=== PATIENT | female | born 1945 | race Hispanic/Latino ===

== ENCOUNTER 2017-05-14 16:26 | Emergency (ER) | payer BC ==
--- NOTE | 2017-05-14 17:25 | Cat Scan Report ---
FINAL REPORT PROCEDURE: CT HEAD/BRAIN WO CON TECHNIQUE: Computerized tomography of the head was performed without contrast material. HISTORY: fall COMPARISON: No prior studies are available for comparison. FINDINGS: Skull and scalp: Normal. Paranasal sinuses: Normal. Ventricles and subarachnoid spaces: Normal. Cerebrum: No evidence of hemorrhage, acute infarction or mass . Cerebellum and brainstem: No evidence of hemorrhage, acute infarction or mass. Vasculature: Normal. Comments: Mild diffuse atrophy. Mild periventricular microischemic change and central lacunar infarct disease.. IMPRESSION: No acute intracranial pathology seen at this time
--- NOTE | 2017-05-14 17:27 | Cat Scan Report ---
FINAL REPORT PROCEDURE: CT CERVICAL SPINE WO CON TECHNIQUE: Computerized tomography of the cervical spine was performed from the skull base to T1 without contrast material. HISTORY: fall COMPARISON: No prior studies are available for comparison. FINDINGS: Moderate sonja odontoid ligamentous calcifications. Skull base appears intact. Multilevel facet arthropathy neuroforaminal narrowing. No definite evidence of acute fracture seen at this time. Prominent posterior osteophyte at the C5-6 level. Slight retrolisthesis at C4.. No prevertebral soft tissue swelling IMPRESSION: No evidence acute fracture seen at this time
--- NOTE | 2017-05-14 17:52 | Cat Scan Report ---
FINAL REPORT PROCEDURE: CT FACIAL BONES WO CON TECHNIQUE: Computerized tomography of the facial bones and soft tissues with axial and coronal sections performed from the cranial aspect of the frontal sinuses to the caudal portion of the mandible without contrast material. HISTORY: fall with orbit injury COMPARISON: No prior studies are available for comparison. FINDINGS: Examination limited by motion artifact Bones: No significant abnormality. Paranasal sinuses: Clear. Soft tissues: No significant abnormality. Other: Slight calcification anterior alveolar ridge could reflect tiny fracture but that is inconclusive secondary to motion. IMPRESSION: Indeterminate for slight chip fracture anterior alveolar ridge versus motion. No definite evidence of acute fracture of the orbit
[2017-05-14] MEDS ORDERED: TORADOL IM ONE (22:15)
--- NOTE | 2017-05-14 22:30 | Emergency Department Report ---
ED Headache HPI - General Chief Complaint: Headache Stated Complaint: FALL, RIGHT EYE LACERATION Time Seen by Provider: 05/14/17 21:42 Source: patient, RN notes reviewed Exam Limitations: no limitations - History of Present Illness Initial Comments: 71 yo female who comes in today due to a fall. She states that she was walking behind someone at school and her leg got caught and she fell. She denies any loc, but does admit to pain in the right temporal area and over her right upper eyelid. She also denies any focal neurological deficits. Quality: mild Head Injury Location: temporal (right), other (right upper eyelid ) Recent Head Trauma: other (fall ) Modifying Factors: improves with: rest Associated Symptoms: denies symptoms Allergies/Adverse Reactions: Allergies Penicillins Allergy (Verified 05/14/17 16:36) Swelling sulfamethoxazole [From Bactrim] Allergy (Verified 05/14/17 16:36) Hives trimethoprim [From Bactrim] Allergy (Verified 05/14/17 16:36) Hives diazepam [From Valium] Adverse Reaction (Verified 05/14/17 16:36) Shortness of Breath morphine Adverse Reaction (Verified 05/14/17 16:36) Nausea ED Review of Systems ROS: Stated complaint: FALL, RIGHT EYE LACERATION Other details as noted in HPI Constitutional: denies: chills, fever Eyes: as per HPI, eye pain ENT: denies: ear pain, throat pain Respiratory: denies: cough, shortness of breath, wheezing Cardiovascular: denies: chest pain, palpitations Endocrine: no symptoms reported Gastrointestinal: denies: abdominal pain, nausea, diarrhea Genitourinary: denies: urgency, dysuria, discharge Musculoskeletal: other (left rib pain ) Skin: denies: rash, lesions Neurological: denies: headache, weakness, paresthesias Psychiatric: denies: anxiety, depression Hematological/Lymphatic: denies: easy bleeding, easy bruising ED Past Medical Hx - Past Medical History Previous Medical History?: Yes Hx Hypertension: Yes Additional medical history: Osterporosis, Deg. disc disease, IBS - Surgical History Hx Cholecystectomy: Yes Additional Surgical History: 3 knee surgeries ED Physical Exam - General Limitations: No Limitations General appearance: alert, in no apparent distress - Head Head exam: Present: other (laceration-right upper eyelid ) - Eye Eye exam: Present: other (right upper eyelid laceration ) Pupils: Present: normal accommodation - ENT ENT exam: Present: mucous membranes moist - Neck Neck exam: Present: normal inspection - Respiratory Respiratory exam: Present: normal lung sounds bilaterally. Absent: respiratory distress - Cardiovascular Cardiovascular Exam: Present: tachycardia - Extremities Exam Extremities exam: Present: normal inspection - Back Exam Back exam: Present: normal inspection - Neurological Exam Neurological exam: Present: alert, oriented X3 - Psychiatric Psychiatric exam: Present: normal affect, normal mood - Skin Skin exam: Present: warm, dry, intact, normal color. Absent: rash ED Course Vital Signs 05/14/17 05/14/17 16:36 20:21 Temperature 98.7 F 98.6 F Pulse Rate 109 H 94 H Respiratory 18 18 Rate Blood Pressure 166/97 176/107 O2 Sat by Pulse 95 95 Oximetry - Reevaluation(s) Reevaluation #1: 05/14/17 23:37 Workup unremarkable. Home today. ED Medical Decision Making - Radiology Data Radiology results: report reviewed CT-head, ct facial, ct cervical spine, left chest with rib detail unremarkable. - Medical Decision Making Fall Contusion-right upper eyelid/temporal area Left rib contusion - Differential Diagnosis Fall, right temporal contusion/abrasion, left rib contusion Critical care attestation.: If time is entered above; I have spent that time in minutes in the direct care of this critically ill patient, excluding procedure time. ED Disposition Clinical Impression: Fall, Contusion, eyelid, right, Contusion of rib on left side Disposition: DC-01 TO HOME OR SELFCARE Is pt being admited?: No Does the pt Need Aspirin: No Condition: Stable Instructions: Fall Prevention for Older Adults (ED), Contusion in Adults (ED) Additional Instructions: Please monitor the patient for the next 24-48 hours for any mental status changes, new onset weakness, or focal neurologic deficits. May apply ice to the affected site for 20 minutes three times daily until better. May also take tylenol 650 mg every 6-8 hours as needed for pain and swelling. Referrals: PRIMARY CARE, [Primary Care Provider] - 3-5 Days Time of Disposition: 23:47
--- NOTE | 2017-05-14 23:07 | XRay Report ---
FINAL REPORT PROCEDURE: XR RIBS UNILAT 2V LT TECHNIQUE: Chest x-ray and four views of the left ribs are obtained HISTORY: Left rib pain after fall 3 days ago. Left rib pain is on left lateral side. COMPARISON: No prior studies are available for comparison. FINDINGS: Motion limits 1 of the images. No rib fracture is seen. The heart is normal in size. There is no focal infiltrate, pneumothorax or pleural effusion. IMPRESSION: No rib fracture is seen.
[2017-05-15 00:09] VITALS: BP 112/74
== END 2017-05-15 00:03 | disposition home or self-care (01) ==
LOC: ED 16:26
DX: S00.11XA Contusion of right eyelid and periocular area, initial encounter (principal); S20.212A Contusion of left front wall of thorax, initial encounter; W18.30XA Fall on same level, unspecified, initial encounter; Y93.89 Activity, other specified; Y92.89 Other specified places as the place of occurrence of the external cause; Y99.8 Other external cause status
CPT/HCPCS: 70450; 70486; 71100; 72125; 96372; 99284; J1885

== ENCOUNTER 2017-05-21 08:29 | Outpatient (CLI) | payer BC ==
--- NOTE | 2017-05-21 08:54 | XRay Report ---
Left shoulder 3 views. History: Pain after trauma. Findings: There are no fractures or other acute findings. There is moderate DJD of the a.c. joint. Impression: No acute findings.
== END 2017-05-21 08:30 | disposition home or self-care (01) ==
LOC: SPVIMAG 08:29
PROVIDERS: ATTEND Orthopaedic Surgery Sports Medicine
DX: M19.012 Primary osteoarthritis, left shoulder (principal); W19.XXXA Unspecified fall, initial encounter; I10 Essential (primary) hypertension; Y93.89 Activity, other specified; Y92.89 Other specified places as the place of occurrence of the external cause; Y99.8 Other external cause status